=== PATIENT | male | born 1985 | race Caucasian/White ===

== ENCOUNTER 2018-03-11 09:51 | Emergency (ER) | payer OTHER ==
[2018-03-11 10:37] VITALS: RESP 18
--- NOTE | 2018-03-11 12:20 | ED ---
Male Urogenital HPI - General Source: patient, RN notes reviewed Mode of arrival: wheelchair Limitations: no limitations <Casimior Stanley - Last Filed: 03/11/18 13:42> <Bakari Mattson - Last Filed: 03/11/18 13:54> - General Chief complaint: Urogenital Stated complaint: Male Time Seen by Provider: 03/11/18 11:42 - History of Present Illness Initial comments: This is a 33-year-old male presents emergency Department chief complaint of testicular pain. Patient states he does have a small lump on the left side but states that pain and swelling worsen when he woke up this morning. Patient states that it did radiate slightly up into his abdomen. Denies any flank pain no history kidney stones for himself. He denies any dysuria no penile drainage and urinary frequency. Patient had no fever no chills no trauma denies any nausea vomiting diarrhea constipation. (Casimiro Stanley) - Related Data Home Medications Medication Instructions Recorded Confirmed Acetaminophen Tab [Tylenol Tab] 500 mg PO Q4H PRN 03/11/18 03/11/18 Previous Rx's Medication Instructions Recorded Ibuprofen [Motrin] 600 mg PO Q8HR PRN #30 tab 03/11/18 Allergies Allergy/AdvReac Type Severity Reaction Status Date / Time morphine Allergy Swelling Verified 03/11/18 12:12 Review of Systems ROS Other: All systems not noted in ROS Statement are negative. <Casimiro Stanley - Last Filed: 03/11/18 13:42> ROS Other: All systems not noted in ROS Statement are negative. <Bakari Mattson - Last Filed: 03/11/18 13:54> ROS Statement: Those systems with pertinent positive or pertinent negative responses have been documented in the HPI. Past Medical History Past Medical History: No Reported History History of Any Multi-Drug Resistant Organisms: None Reported Past Surgical History: Appendectomy Past Psychological History: No Psychological Hx Reported Smoking Status: Current every day smoker Past Alcohol Use History: Occasional Past Drug Use History: None Reported <Casimiro Stanley - Last Filed: 03/11/18 13:42> General Exam Limitations: no limitations General appearance: alert, in no apparent distress Head exam: Present: atraumatic, normocephalic, normal inspection Respiratory exam: Present: normal lung sounds bilaterally. Absent: respiratory distress, wheezes, rales, rhonchi, stridor Cardiovascular Exam: Present: regular rate, normal rhythm, normal heart sounds. Absent: systolic murmur, diastolic murmur, rubs, gallop, clicks GI/Abdominal exam: Present: soft, normal bowel sounds. Absent: distended, tenderness, guarding, rebound, rigid exam: Present: normal inspection, testicular tenderness. Absent: urethral discharge, scrotal swelling Back exam: Absent: CVA tenderness (R), CVA tenderness (L) Skin exam: Present: warm, dry, intact, normal color. Absent: rash <Casimiro Stanley - Last Filed: 03/11/18 13:42> Vital Signs 03/11/18 10:32 Temperature 98.3 F Pulse Rate 88 Respiratory 18 Rate Blood Pressure 135/88 O2 Sat by Pulse 98 Oximetry Medical Decision Making <Casimiro Stanley - Last Filed: 03/11/18 13:42> <Bakari Mattson - Last Filed: 03/11/18 13:54> - Medical Decision Making 33-year-old male presents emergency department for left-sided testicular pain and swelling. Patient was evaluated by Dr. Mattson case discussed with Dr. Ramey with urology for the evidence of epididymal torsion on ultrasound. Patient does have a slight hernia which is reducible. Patient will follow-up with on-call surgery urology. They stated that there is no emergent treatment needed. (Casimiro Stanley) Patient was reevaluated by myself, and Srinivasan. Patient does have firmness and tenderness of the epididymis. Patient did have small easily reducible nontender left inguinal hernia. Case was discussed in detail with Dr. Johnson who does not have concern for any need for emergent intervention. He states patient can follow-up if needed. (Bakari Mattson) - Lab Data Lab Results 03/11/18 Range/Units 12:00 Urine Color Yellow Urine Appearance Clear (Clear) Urine pH 6.5 (5.0-8.0) Ur Specific [place] 1.008 (1.001-1.035) Urine Protein Negative (Negative) Urine Glucose (UA) Negative (Negative) Urine Ketones Negative (Negative) Urine Blood Negative (Negative) Urine Nitrite Negative (Negative) Urine Bilirubin Negative (Negative) Urine Urobilinogen <2.0 (<2.0) mg/dL Ur Leukocyte Esterase Negative (Negative) Disposition Is patient prescribed a controlled substance at d/c from ED?: No Time of Disposition: 13:44 <Casimiro Stanley - Last Filed: 03/11/18 13:42> <Bakari Mattson - Last Filed: 03/11/18 13:54> Clinical Impression: Testicular pain, left, Torsion of epididymis, Left inguinal hernia Disposition: HOME SELF-CARE Condition: Stable Instructions: Inguinal Hernia (ED), Testicle Pain (ED) Additional Instructions: Please return to the Emergency Department if symptoms worsen or any other concerns. Prescriptions: Ibuprofen [Motrin] 600 mg PO Q8HR PRN #30 tab PRN Reason: Pain Referrals: Adi Washington MD [Primary Care Provider] - 1-2 days Noman Ramey MD [STAFF PHYSICIAN] - 1-2 days Beverly Driver DO [Doctor of Osteopathic Medicine] - 1-2 days
--- NOTE | 2018-03-11 12:26 | US ---
EXAMINATION TYPE: US scrotum with doppler. Grayscale and color Doppler Duplex imaging performed of gissel newman scrotum. DATE OF EXAM: 03/11/2018 COMPARISON: NONE CLINICAL HISTORY: Patient has very painful palpable area on left. He says it started being sore yeste rday but has gotten worse today. EXAM MEASUREMENTS: TESTICLES: Right Testicle: 4.5 x 2.6 x 2.8 cm Left Testicle: 4.4 x 2.5 x 3.3 cm EPIDIDYMIS HEAD: Right Epididymis: 0.7 cm Left Epididymis: 0.9 cm Doppler performed to assess for testicular vascularity; good bilateral color flow and waveforms are s een. Presence of hydroceles: small right Presence of varicoceles: no At patients palpable area of pain is a well circumscribed mass measuring 1.1 x 0.9 x 1.2cm that appe ars to be part of the epididymis which shows no blood flow. Comparison views near image 27 show symmetric blood flow to both testicles. Technologist stringer a 1.0 cm solid nonvascular area along the periphery of the left testicle. Addition al images for example image 57 and 34 show heterogeneous larger vascular area outside the left testic le within the scrotum. IMPRESSION: No diminished or increased blood flow to left testicle. Nonvascular 1.0 cm heterogeneous solid lesion in the left scrotum adjacent to the testicle could reflect focal epididymal torsion. Add itional more prominent heterogeneous tissue in left scrotum could reflect bowel containing inguinal h ernia. Advise CT correlation to further evaluate.
[2018-03-11 12:48] LABS: Appearance,Urine Clear (Clear); Bilirubin,Urine Negative (Negative); Blood,Urine Negative (Negative); Color,Urine Yellow; Glucose,Urine (UA) Negative (Negative); Ketones,Urine Negative (Negative); Leukocyte Esterase,Urine Negative (Negative); Nitrite,Urine Negative (Negative); PH, Urine 6.5 (5.0-8.0); Protein,Urine Negative (Negative); Specific Gravity,Urine 1.008 (1.001-1.035); Urobilinogen,Urine <2.0 mg/dL (<2.0)
[2018-03-11] MEDS ORDERED: HYDROcodone/APAP 5-325MG 1 EACH TAB PO STA (13:35)
[2018-03-11] MEDS ORDERED: ACET/COD 300 MG/30 MG STARTER PACK 6 TAB BTL PO STA (13:44)
[2018-03-11 13:55] VITALS: BP 132/82; PULSE 54; TEMP 97.3
== END 2018-03-11 13:54 | disposition home or self-care (01) ==
LOC: EC 09:51
DX: N44.04 Torsion of appendix epididymis (principal); K40.90 Unilateral inguinal hernia, without obstruction or gangrene, not specified as recurrent; F17.200 Nicotine dependence, unspecified, uncomplicated; Z88.5 Allergy status to narcotic agent; Z90.49 Acquired absence of other specified parts of digestive tract
CPT/HCPCS: 76870; 81003; 93975; 99284